=== PATIENT | female | born 2000 | race African-American/Black ===

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

== ENCOUNTER 2019-01-24 15:12 | Observation (INO) | payer MEDICAID ==
[~2019-01-24] VITALS: Ht 160 cm; Wt 61.2 kg
[2019-01-24] MEDS ORDERED: LACTATED RINGERS 1,000 ML IV SCH (16:45)
[2019-01-24] MEDS ORDERED: ONDANSETRON HCL 4MG/2ML INJ IV NR (16:45)
[2019-01-24 16:53] LABS: CHLORIDE 105 mEq/L (98-107)
[2019-01-24 17:12] LABS: CLARITY URINE CLEAR (CLEAR); COLOR URINE YELLOW (YELLOW); KETONES URINE TRACE (NEGATIVE); LEUKOCYTE ESTERASE URINE TRACE (NEGATIVE); NITRITE URINE NEGATIVE (NEGATIVE); OCCULT BLOOD URINE NEGATIVE (NEGATIVE); PROTEIN URINE NEGATIVE (NEGATIVE); SPECIFIC GRAVITY URINE 1.023 (1.005-1.030); UROBILINOGEN URINE 0.2 E.U./dL (0.2-1.0)
[2019-01-24 17:52] LABS: BASOPHILS % 0.3 % (0.0-2.0); HEMATOCRIT. 35.9 % (36.0-48.0); HEMOGLOBIN. 11.5 g/dL (12.0-16.0); MEAN CORPUSCULAR HEMOGLOBIN 22.1 pg (28.0-32.0); MEAN CORPUSCULAR VOLUME 69.3 fL (81.0-99.0); MEAN PLATELET VOLUME 9.1 fl (7.4-10.4); MONOCYTES % 8.4 % (2.0-8.0); NEUTROPHILS % 70.3 % (40.0-76.0); PLATELET 238 x1000/uL (130-400); RED BLOOD CELL COUNT 5.19 mill/uL (4.2-5.4)
[2019-01-24 19:58] LABS: PLATELET ESTIMATE NORMAL
== END 2019-01-24 18:48 | disposition home or self-care (01) ==
LOC: ER 15:12 → 8 EST LDRP 15:28
PROVIDERS: ADMIT Obstetrics & Gynecology; ATTEND Obstetrics & Gynecology
DX: O26.892 Other specified pregnancy related conditions, second trimester (principal); R10.9 Unspecified abdominal pain; Z3A.27 27 weeks gestation of pregnancy
CPT/HCPCS: 36415; 80053; 81003; 85025; 96374; 99281; G0378; J2405

== ENCOUNTER 2019-10-16 17:10 | Emergency (ER) | payer MEDICAID ==
[~2019-10-16] VITALS: Ht 154.9 cm; Wt 91.0 kg
[2019-10-17] MEDS ORDERED: KETOROLAC 60MG/2ML VIAL IM ONE
[2019-10-17 01:56] VITALS: BP 135/85
== END 2019-10-16 23:44 | disposition left against medical advice (07) ==
LOC: ER 17:10
DX: M79.671 Pain in right foot (principal); F17.290 Nicotine dependence, other tobacco product, uncomplicated; F12.10 Cannabis abuse, uncomplicated; Z98.890 Other specified postprocedural states
CPT/HCPCS: 73630; 96372; 99283; 99406; J1885

== ENCOUNTER 2020-08-02 18:07 | Emergency (ER) | payer MEDICAID ==
[~2020-08-02] VITALS: Ht 152.4 cm; Wt 97.5 kg
[2020-08-02] MEDS ORDERED: IBUPROFEN 600MG TABLET PO STA (20:45)
[2020-08-02 22:10] VITALS: BP 142/46
== END 2020-08-02 22:11 | disposition home or self-care (01) ==
LOC: ER 18:07
DX: S93.402A Sprain of unspecified ligament of left ankle, initial encounter (principal); M79.672 Pain in left foot; F12.10 Cannabis abuse, uncomplicated; Z98.890 Other specified postprocedural states; W18.2XXA Fall in (into) shower or empty bathtub, initial encounter; Y93.89 Activity, other specified; Y92.89 Other specified places as the place of occurrence of the external cause; Y99.8 Other external cause status
CPT/HCPCS: 29515; 73610; 73630; 81025; 99284; Z7610

== ENCOUNTER 2021-02-18 19:46 | Emergency (ER) | payer MEDICAID | END 2021-02-18 20:00 | disposition left against medical advice (07) | LOC: ER 19:46 | DX: Z53.21 Procedure and treatment not carried out due to patient leaving prior to being seen by health care provider (principal) ==

== ENCOUNTER 2021-09-26 17:49 | Emergency (ER) | payer MEDICAID ==
[~2021-09-26] VITALS: Ht 157.5 cm; Wt 91.0 kg
[2021-09-26] MEDS ORDERED: ACETAMINOPHEN 325MG TABLET PO STA (19:27)
[2021-09-26 22:28] LABS: BASOPHILS % 0.2 % (0.0-2.0); EOSINOPHILS % 0.7 % (0.0-5.0); HEMATOCRIT. 36.6 % (36.0-48.0); HEMOGLOBIN. 11.5 g/dL (12.0-16.0); LYMPHOCYTES % 28.2 % (20.0-50.0); MEAN CORPUSCULAR HEMOGLOBIN 21.6 pg (28.0-32.0); MEAN CORPUSCULAR VOLUME 68.7 fL (81.0-99.0); MEAN PLATELET VOLUME 9.5 fl (7.4-10.4); MONOCYTES % 7.8 % (2.0-8.0); NEUTROPHILS % 63.1 % (40.0-76.0); PLATELET 235 x1000/uL (130-400); RED BLOOD CELL COUNT 5.34 mill/uL (4.2-5.4); RED CELL DISTRIBUTION WIDTH 15.1 % (11.6-14.6)
[2021-09-26 22:31] LABS: CHLORIDE 104 mEq/L (98-107)
[2021-09-26 23:01] LABS: B-HCG QUANTITATIVE 66904 mIU/mL (<3)
[2021-09-26 23:02] LABS: CLARITY URINE CLEAR (CLEAR); COLOR URINE YELLOW (YELLOW); KETONES URINE TRACE (NEGATIVE); LEUKOCYTE ESTERASE URINE NEGATIVE (NEGATIVE); NITRITE URINE NEGATIVE (NEGATIVE); OCCULT BLOOD URINE 2+ (NEGATIVE); PROTEIN URINE NEGATIVE (NEGATIVE); SPECIFIC GRAVITY URINE 1.022 (1.005-1.030); UROBILINOGEN URINE 0.2 E.U./dL (0.2-1.0)
[2021-09-26 23:14] LABS: PLATELET ESTIMATE NORMAL
[2021-09-26] MEDS ORDERED: NITR-87 MT ×2 (23:33→23:34)
[2021-09-27 00:05] VITALS: BP 113/48
== END 2021-09-27 00:07 | disposition home or self-care (01) ==
LOC: ER 17:49
DX: O20.0 Threatened abortion (principal); O26.891 Other specified pregnancy related conditions, first trimester; R82.71 Bacteriuria; Z3A.09 9 weeks gestation of pregnancy
CPT/HCPCS: 36415; 76830; 76856; 80053; 81003; 84702; 85025; 86850; 86900; 99284

== ENCOUNTER 2022-02-06 16:19 | Observation (INO) | payer MEDICAID ==
[~2022-02-06] VITALS: Ht 154.9 cm; Wt 94.3 kg
[~2022-02-06 16:19] MED LIST: PNV1TABL76 MT
[2022-02-06 17:50] LABS: CLARITY URINE CLEAR (CLEAR); COLOR URINE YELLOW (YELLOW); KETONES URINE TRACE (NEGATIVE); LEUKOCYTE ESTERASE URINE NEGATIVE (NEGATIVE); NITRITE URINE NEGATIVE (NEGATIVE); OCCULT BLOOD URINE NEGATIVE (NEGATIVE); PROTEIN URINE NEGATIVE (NEGATIVE); SPECIFIC GRAVITY URINE 1.017 (1.005-1.030)
== END 2022-02-06 18:06 | disposition home or self-care (01) ==
LOC: 8 EST A/PP 16:19
PROVIDERS: ADMIT Obstetrics & Gynecology; ATTEND Obstetrics & Gynecology
DX: O26.893 Other specified pregnancy related conditions, third trimester (principal); R10.2 Pelvic and perineal pain; Z79.899 Other long term (current) drug therapy; Z3A.28 28 weeks gestation of pregnancy
CPT/HCPCS: 81003; G0378; 59025; 99281; G0379

== ENCOUNTER 2024-11-20 12:39 | Emergency (ER) | payer MEDICAID ==
[~2024-11-20] VITALS: Ht 154.9 cm; Wt 85.5 kg
[2024-11-20 13:18] VITALS: O2SAT 100
[2024-11-20] MEDS ORDERED: LIDOCAINE HCL/PF 1% 10 MG/ML 5ML VIAL INFIL ONE (14:45)
[2024-11-20] MEDS: ACETAMINOPHEN 500MG TABLET PO ONE (15:08)
[2024-11-20] MEDS: BACITRACIN ZINC OINT UDPKT TOP ONE (15:08)
[2024-11-20] MEDS: TETANUS, DIPHTHERIA, PERTUSSIS VAC/PF 0.5ML (>10YR OLD) IM ONE (15:09)
[2024-11-20 17:22] VITALS: BP 117/57; PULSE 61; RESP 18; TEMP 37.1; O2SAT 100
[2024-11-20] MEDS ORDERED: IBUP-2029 MT (17:27)
[2024-11-20] MEDS ORDERED: BO1 TP (17:27)
== END 2024-11-20 17:49 | disposition home or self-care (01) ==
LOC: ER 12:39
DX: S52.612A Displaced fracture of left ulna styloid process, initial encounter for closed fracture (principal); Z98.890 Other specified postprocedural states; W22.8XXA Striking against or struck by other objects, initial encounter; Y93.89 Activity, other specified; Y92.89 Other specified places as the place of occurrence of the external cause; Y99.8 Other external cause status
CPT/HCPCS: 99284; 70450; 73090; 70486; 12002; J2003; 90715